=== PATIENT | female | born 1980 | race Caucasian/White ===

== ENCOUNTER 2017-08-25 07:46 | Inpatient (IN) | payer OTHER ==
[2017-08-25] MEDS: BUPIVACAINE 0.25% (MPF) 30 ML INJ INJ
[~2017-08-25 07:46] MED LIST: CEFAZOLIN 1 GM INJ; CEFAZOLIN 1 GM/50 ML (PMX) 50 ML IVPB
[2017-08-25] MEDS ORDERED: BUPIVACAINE 0.25% (MPF) 30 ML INJ (09:48)
[2017-08-25] MEDS: SOD CHLORIDE 0.9% 1,000 ML IV ×5 (10:30→20:00)
[2017-08-25] MEDS ORDERED: MIDAZOLAM 1 MG/ML 2 ML INJ (10:36)
[2017-08-25] MEDS ORDERED: ROCURONIUM 50 MG INJ ×2 (10:41→11:26)
[2017-08-25] MEDS ORDERED: METOCLOPRAMIDE 10 MG INJ (10:41)
[2017-08-25] MEDS ORDERED: ROPIVACAINE 0.5 % 30 ML VIAL (10:41)
[2017-08-25] MEDS ORDERED: PROPOFOL 20 ML (10:41)
[2017-08-25] MEDS ORDERED: FENTAnyl 50 MCG/ML VIAL (10:48)
[2017-08-25] MEDS ORDERED: KETOROLAC 30 MG INJ (11:20)
[2017-08-25] MEDS ORDERED: ONDANSETRON 4 MG INJ (11:20)
[2017-08-25] MEDS ORDERED: HYDROmorphONE 2 MG/ML SYG (11:20)
[2017-08-25] MEDS: POLYMYXIN/BACITRACIN 1L IRRIG (11:20)
[2017-08-25] MEDS ORDERED: NEOSTIGMINE 3 MG/3 ML SYRINGE (11:24)
[2017-08-25] MEDS ORDERED: ACETAMINOPHEN 1000MG/100ML IV 100 ML (11:24)
[2017-08-25] MEDS ORDERED: GLYCOPYRROLATE 0.4 MG INJ (11:24)
[2017-08-25] MEDS ORDERED: DIPHENHYDRAMINE 50 MG INJ IV (11:30)
[2017-08-25] MEDS ORDERED: HYDROCODONE/APAP (5/325) TAB PO (12:30)
[2017-08-25] MEDS ORDERED: HYDROmorphONE 0.5 MG/0.5 ML SYG IV (12:30)
[2017-08-25] MEDS ORDERED: morphine 2 MG INJ IV (12:30)
[2017-08-25] MEDS: HYDROmorphONE 1 MG/5 ML IV SYRINGE IV ×4 (12:44→14:00)
[2017-08-25] MEDS: MEPERIDINE 25 MG INJ IV (12:45)
[2017-08-25] MEDS: ONDANSETRON 4 MG INJ IV ×2 (12:45→18:52)
[2017-08-25 13:57] LABS: ADD MAN DIFF? NO
[2017-08-25 13:59] LABS: BASOPHIL # 0.1 10^3/ul (0.0-0.1); BASOPHILS % 0.4 % (0.0-2.0); EOSINOPHILS # 0.4 10^3/ul (0.0-0.5); EOSINOPHILS % 2.3 % (0.0-7.0); HEMATOCRIT 41.9 % (37.0-47.0); HEMOGLOBIN 13.5 g/dl (12.0-16.0); LYMPHOCYTES # 4.3 10^3/ul (0.8-2.9); LYMPHOCYTES % 22.6 % (15.0-51.0); MEAN CORPUSCULAR HEMOGLOBIN 27.3 pg (29.0-33.0); MEAN CORPUSCULAR HGB CONC 32.2 g/dl (32.0-37.0); MEAN CORPUSCULAR VOLUME 84.8 fl (82.0-101.0); MEAN PLATELET VOLUME 10.4 fl (7.4-10.4); MONOCYTE # 0.7 10^3/ul (0.3-0.9); MONOCYTES % 3.8 % (0.0-11.0); NEUTROPHIL # 13.4 10^3/ul (1.6-7.5); NEUTROPHILS % 70.2 % (39.0-77.0); PLATELET COUNT 292 10^3/UL (140-415); RED BLOOD COUNT 4.94 10^6/ul (4.20-5.40); RED CELL DISTRIBUTION WIDTH 13.5 % (11.5-14.5)
[2017-08-25 13:59] LABS: WHITE BLOOD COUNT 19.1 10^3/ul (4.8-10.8)
[2017-08-25] MEDS ORDERED: CEFAZOLIN 2 GM/50 ML (PMX) 50 ML IVPB (14:00)
[2017-08-25 14:20] LABS: ALANINE AMINOTRANSFERASE 34 IU/L (13-69); ALBUMIN 3.5 g/dl (3.3-4.9); ALBUMIN/GLOBULIN RATIO 1.09; ALKALINE PHOSPHATASE 69 IU/L (42-121); ANION GAP 11 (8-16); ASPARTATE AMINO TRANSFERASE 16 IU/L (15-46); BILIRUBIN,INDIRECT 0.5 mg/dl (0-1.1); BILIRUBIN,TOTAL 0.5 mg/dl (0.2-1.3); CARBON DIOXIDE 24 mmol/L (21-31); CHLORIDE 110 mmol/L (97-110); GLUCOSE 144 mg/dl (70-220); TOTAL PROTEIN 6.7 g/dl (6.1-8.1)
[2017-08-25 14:23] LABS: BLOOD UREA NITROGEN 13 mg/dl (7-20); CREATININE 0.85 mg/dl (0.44-1.00); POTASSIUM 4.1 mmol/L (3.5-5.1); SODIUM 141 mmol/L (135-144)
[2017-08-25] MEDS ORDERED: ACETAMINOPHEN 325 MG TAB PO (18:00)
[2017-08-25] MEDS: ACETAMINOPHEN 650MG/20.3ML CUP PO ×2 (18:57→22:48)
[2017-08-25] MEDS: CEFAZOLIN 2 GM/50 ML (PMX) 50 ML IVPB (21:34)
[2017-08-25] MEDS: morphine 2 MG INJ IV (23:16)
[2017-08-26] MEDS: OXYCODONE/ACETAMINOPHEN (5/325) TAB PO ×2 (01:18→12:41)
[2017-08-26] MEDS: morphine 2 MG INJ IV (02:50)
[2017-08-26] MEDS: CEFAZOLIN 2 GM/50 ML (PMX) 50 ML IVPB ×2 (05:19→13:59)
[2017-08-26 05:37] LABS: ADD MAN DIFF? NO
[2017-08-26 05:42] LABS: WHITE BLOOD COUNT 14.3 10^3/ul (4.8-10.8)
[2017-08-26 05:42] LABS: BASOPHILS % 0.2 % (0.0-2.0); EOSINOPHILS % 0.3 % (0.0-7.0); HEMATOCRIT 37.2 % (37.0-47.0); HEMOGLOBIN 12.3 g/dl (12.0-16.0); LYMPHOCYTES # 2.1 10^3/ul (0.8-2.9); LYMPHOCYTES % 14.3 % (15.0-51.0); MEAN CORPUSCULAR HEMOGLOBIN 27.7 pg (29.0-33.0); MEAN CORPUSCULAR HGB CONC 33.1 g/dl (32.0-37.0); MEAN CORPUSCULAR VOLUME 83.8 fl (82.0-101.0); MEAN PLATELET VOLUME 10.5 fl (7.4-10.4); MONOCYTE # 0.8 10^3/ul (0.3-0.9); MONOCYTES % 5.9 % (0.0-11.0); NEUTROPHIL # 11.3 10^3/ul (1.6-7.5); NEUTROPHILS % 78.9 % (39.0-77.0); PLATELET COUNT 221 10^3/UL (140-415); RED BLOOD COUNT 4.44 10^6/ul (4.20-5.40); RED CELL DISTRIBUTION WIDTH 13.3 % (11.5-14.5)
[2017-08-26 06:10] LABS: ALANINE AMINOTRANSFERASE 34 IU/L (13-69); ALBUMIN 3.2 g/dl (3.3-4.9); ALKALINE PHOSPHATASE 61 IU/L (42-121); ANION GAP 9 (8-16); ASPARTATE AMINO TRANSFERASE 14 IU/L (15-46); BLOOD UREA NITROGEN 9 mg/dl (7-20); CALCIUM 8.1 mg/dl (8.4-10.2); CARBON DIOXIDE 24 mmol/L (21-31); CHLORIDE 109 mmol/L (97-110); CREATININE 0.65 mg/dl (0.44-1.00); GLUCOSE 116 mg/dl (70-220); SODIUM 138 mmol/L (135-144); TOTAL PROTEIN 6.4 g/dl (6.1-8.1)
[2017-08-26] MEDS: HYDROmorphONE 1 MG/ML SYG IV ×3 (06:27→13:30)
[2017-08-26] MEDS: ONDANSETRON 4 MG INJ IV ×4 (06:29→22:50)
[2017-08-26] MEDS: SOD CHLORIDE 0.9% 1,000 ML IV ×2 (09:07→22:40)
[2017-08-26] MEDS ORDERED: NALOXONE (0.4 MG/ML) INJ IV (13:30)
[2017-08-26] MEDS ORDERED: DIAZEPAM 5 MG TAB PO (13:30)
[2017-08-26] MEDS: HYDROmorphONE 0.2 MG/ML PCA IV (14:40)
[2017-08-27] MEDS: SOD CHLORIDE 0.9% 1,000 ML IV ×2 (04:42→12:38)
[2017-08-27 06:05] LABS: ADD MAN DIFF? NO
[2017-08-27 06:27] LABS: WHITE BLOOD COUNT 13.1 10^3/ul (4.8-10.8)
[2017-08-27 06:28] LABS: BASOPHILS % 0.3 % (0.0-2.0); EOSINOPHILS # 0.1 10^3/ul (0.0-0.5); EOSINOPHILS % 0.5 % (0.0-7.0); HEMATOCRIT 35.8 % (37.0-47.0); HEMOGLOBIN 11.8 g/dl (12.0-16.0); LYMPHOCYTES # 1.8 10^3/ul (0.8-2.9); LYMPHOCYTES % 13.5 % (15.0-51.0); MEAN CORPUSCULAR HEMOGLOBIN 27.7 pg (29.0-33.0); MEAN PLATELET VOLUME 10.8 fl (7.4-10.4); MONOCYTE # 0.9 10^3/ul (0.3-0.9); MONOCYTES % 6.8 % (0.0-11.0); NEUTROPHIL # 10.3 10^3/ul (1.6-7.5); NEUTROPHILS % 78.1 % (39.0-77.0); PLATELET COUNT 180 10^3/UL (140-415); RED BLOOD COUNT 4.26 10^6/ul (4.20-5.40); RED CELL DISTRIBUTION WIDTH 13.6 % (11.5-14.5)
[2017-08-27 06:49] LABS: ANION GAP 12 (8-16); BLOOD UREA NITROGEN 9 mg/dl (7-20); CALCIUM 8.1 mg/dl (8.4-10.2); CARBON DIOXIDE 26 mmol/L (21-31); CHLORIDE 106 mmol/L (97-110); CREATININE 0.64 mg/dl (0.44-1.00); GLUCOSE 93 mg/dl (70-220); POTASSIUM 4.1 mmol/L (3.5-5.1); SODIUM 140 mmol/L (135-144)
[2017-08-27] MEDS: HYDROmorphONE 0.2 MG/ML PCA IV (10:01)
[2017-08-27] MEDS: IBUPROFEN 400 MG TAB GTB (13:15)
[2017-08-27] MEDS ORDERED: HYDROmorphONE 0.2 MG/ML PCA IV (15:00)
[2017-08-28] MEDS: SOD CHLORIDE 0.9% 1,000 ML IV ×3 (01:20→15:39)
[2017-08-28 06:00] LABS: ADD MAN DIFF? NO
[2017-08-28 06:12] LABS: BASOPHILS % 0.3 % (0.0-2.0); EOSINOPHILS # 0.2 10^3/ul (0.0-0.5); EOSINOPHILS % 1.6 % (0.0-7.0); HEMOGLOBIN 11.3 g/dl (12.0-16.0); LYMPHOCYTES # 2.3 10^3/ul (0.8-2.9); LYMPHOCYTES % 22.2 % (15.0-51.0); MEAN CORPUSCULAR HEMOGLOBIN 27.6 pg (29.0-33.0); MEAN CORPUSCULAR HGB CONC 33.2 g/dl (32.0-37.0); MEAN CORPUSCULAR VOLUME 83.1 fl (82.0-101.0); MEAN PLATELET VOLUME 10.7 fl (7.4-10.4); MONOCYTE # 0.7 10^3/ul (0.3-0.9); MONOCYTES % 7.1 % (0.0-11.0); NEUTROPHILS % 68.1 % (39.0-77.0); PLATELET COUNT 177 10^3/UL (140-415); RED BLOOD COUNT 4.09 10^6/ul (4.20-5.40)
[2017-08-28 06:12] LABS: WHITE BLOOD COUNT 10.3 10^3/ul (4.8-10.8)
[2017-08-28 06:26] LABS: ANION GAP 10 (8-16); BLOOD UREA NITROGEN 11 mg/dl (7-20); CALCIUM 8.2 mg/dl (8.4-10.2); CARBON DIOXIDE 27 mmol/L (21-31); CHLORIDE 108 mmol/L (97-110); CREATININE 0.61 mg/dl (0.44-1.00); GLUCOSE 90 mg/dl (70-220); POTASSIUM 3.8 mmol/L (3.5-5.1); SODIUM 141 mmol/L (135-144)
[2017-08-28] MEDS ORDERED: MAGNESIUM HYDROXIDE 30ML CUP PO (16:00)
[2017-08-29] MEDS: SOD CHLORIDE 0.9% 1,000 ML IV (04:58)
[2017-08-29] MEDS: HYDROCODONE/APAP (5/325) TAB PO ×2 (12:25→17:01)
== END 2017-08-29 18:01 | disposition home or self-care (01) | DRG 337 ==
LOC: SDS 07:46 → REC 12:24 → MS2 08-26 20:30
PROVIDERS: Internal Medicine
PROC: 0WUF0JZ Supplement Abdominal Wall with Synthetic Substitute, Open Approach (ICD-10-PCS; principal; 2017-08-25 10:30)
PROC: 0DNU0ZZ Release Omentum, Open Approach (ICD-10-PCS; 2017-08-25 10:30)
PROC: 0KXL0ZZ Transfer Left Abdomen Muscle, Open Approach (ICD-10-PCS; 2017-08-25 10:30)
PROC: 0KXK0ZZ Transfer Right Abdomen Muscle, Open Approach (ICD-10-PCS; 2017-08-25 10:30)
PROC: 0HX7XZZ Transfer Abdomen Skin, External Approach (ICD-10-PCS; 2017-08-25 10:30)
DX: K43.0 Incisional hernia with obstruction, without gangrene (principal); Z68.38 Body mass index [BMI] 38.0-38.9, adult; F17.200 Nicotine dependence, unspecified, uncomplicated; K66.0 Peritoneal adhesions (postprocedural) (postinfection); E66.9 Obesity, unspecified; Z98.84 Bariatric surgery status
CPT/HCPCS: 80048; 80053; 84703; 85025; 88302; 99217